=== PATIENT | male | born 1945 | race Caucasian/White ===

== ENCOUNTER → 2021-06-12 | Outpatient (CLI) | payer MEDICARE | LOC: KOH-I 06-08 09:45 | DX: M54.41 Lumbago with sciatica, right side (principal); M79.651 Pain in right thigh; M79.604 Pain in right leg; M51.27 Other intervertebral disc displacement, lumbosacral region; M51.36 Other intervertebral disc degeneration, lumbar region; M48.061 Spinal stenosis, lumbar region without neurogenic claudication | CPT/HCPCS: 72148 ==